=== PATIENT | female | born 1980 | race Caucasian/White ===

== ENCOUNTER 2018-11-17 06:42 | Emergency (ER) | payer MEDICAID ==
[2018-11-17 06:51] VITALS: BP 110/86
--- NOTE | 2018-11-17 07:26 | EDM.PDOC ---
ED HPI GENERAL MEDICAL PROBLEM - General Chief Complaint: General Stated Complaint: Rib Pain Time Seen by Provider: 11/17/18 07:05 Source of Information: Reports: Patient History Limitations: Reports: No Limitations - History of Present Illness INITIAL COMMENTS - FREE TEXT/NARRATIVE: 38 YO WF presents to ER with right sided rib pain after slip and fall last night around 8am. Pt reports she landed on her right side and complains of right posterior rib pain. Pt denies any difficulty breathing or anterior chest pain. Pt reports pain is worse with reaching/stretching. Pt denies any other injury. Onset Date: 11/16/18 Duration: Day(s): (1) Location: Reports: Chest Quality: Reports: Sharp Severity: Moderate Improves with: Reports: Rest Worsens with: Reports: Breathing, Movement Associated Symptoms: Reports: No Other Symptoms. 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, Other (see below) Other Treatments QUALITY ASSURANCE INSPECTOR: Ibuprofen 800mg PO; BioFreeze Right Lower Chest Pain Score (Numeric/FACES): 9 - Related Data Allergies Allergy/AdvReac Type Severity Reaction Status Date / Time No Known Drug Allergies Allergy Cannot Verified 11/17/18 06:44 Remember Home Meds: Home Meds traMADol [Ultram] 50 mg PO Q6H PRN #15 tab 11/17/18 [Rx] Past Medical History HEENT History: Reports: Sinusitis - Infectious Disease History Infectious Disease History: Reports: Chicken Pox - Past Surgical History Female Surgical History: Reports: Section Social & Family History - Tobacco Use Smoking Status *Q: Former Smoker Used Tobacco, but Quit: Yes Month/Year Tobacco Last Used: quit 17 yrs ago. Second Hand Smoke Exposure: No - Caffeine Use Caffeine Use: Reports: Coffee - Recreational Drug Use Recreational Drug Use: No ED ROS GENERAL - Review of Systems Review Of Systems: See Below Constitutional: Reports: No Symptoms HEENT: Reports: No Symptoms Respiratory: Reports: No Symptoms Cardiovascular: Reports: No Symptoms Endocrine: Reports: No Symptoms GI/Abdominal: Reports: No Symptoms : Reports: No Symptoms Musculoskeletal: Reports: No Symptoms Skin: Reports: No Symptoms Neurological: Reports: No Symptoms Psychiatric: Reports: No Symptoms Hematologic/Lymphatic: Reports: No Symptoms Immunologic: Reports: No Symptoms ED EXAM, GENERAL - Physical Exam Exam: See Below Exam Limited By: No Limitations General Appearance: Alert, WD/WN, No Apparent Distress Eye Exam: Bilateral Eye: PERRL Throat/Mouth: Normal Inspection, Normal Lips, Normal Teeth, Normal Gums, Normal Oropharynx, Normal Voice, No Airway Compromise Head: Atraumatic, Normocephalic Neck: Normal Inspection, Supple, Non-Tender, Full Range of Motion Respiratory/Chest: No Respiratory Distress, Lungs Clear, Normal Breath Sounds, No Accessory Muscle Use, Chest Non-Tender Cardiovascular: Normal Peripheral Pulses, Regular Rate, Rhythm, No Edema, No Gallop, No JVD, No Murmur, No Rub GI/Abdominal: Normal Bowel Sounds, Soft, Non-Tender, No Organomegaly, No Distention, No Abnormal Bruit, No Mass Back Exam: Normal Inspection, Full Range of Motion, NT Extremities: Normal Inspection, Normal Range of Motion, Non-Tender, Normal Capillary Refill, No Pedal Edema Neurological: Alert, Oriented, CN II-XII Intact, Normal Cognition, Normal Gait, Normal Reflexes, No Motor/Sensory Deficits Psychiatric: Normal Affect, Normal Mood Skin Exam: Warm, Dry, Intact, Normal Color, No Rash Lymphatic: No Adenopathy Course - Vital Signs Last Recorded V/S: Last Vital Signs Temp 35.3 C 11/17/18 06:45 Pulse 68 11/17/18 06:45 Resp 20 11/17/18 06:45 BP 110/86 11/17/18 06:45 Pulse Ox 100 11/17/18 06:45 - Orders/Labs/Meds Orders: Active Orders 24 hr Category Date Time Status Ribs 2V w Chest Rt [CR] Stat Exams 11/17/18 06:57 Ordered - Radiology Interpretation Free Text/Narrative:: right rib- NAD Departure - Departure Time of Disposition: 07:49 Disposition: Home, Self-Care 01 Condition: Fair Clinical Impression: Contusion of rib on right side - Discharge Information Prescriptions: traMADol [Ultram] 50 mg PO Q6H PRN #15 tab PRN Reason: Pain Instructions: Chest Contusion, Adult, [id number] Referrals: Franco Bolton MD [Primary Care Provider] - Additional Instructions: 1. discharge home 2. ultram 50mg PO Q4-6 PRN pain 3. motrin 600mg Q6 4. follow up with PCP for further evaluation and treatment 5. return to ER for worsening symptoms - My Orders Last 24 Hours: My Active Orders 11/17/18 06:57 Ribs 2V w Chest Rt [CR] Stat - Assessment/Plan Last 24 Hours: My Active Orders 11/17/18 06:57 Ribs 2V w Chest Rt [CR] Stat Assessment:: 1. right rib contusion Plan: 1. discharge home 2. ultram 50mg PO Q4-6 PRN pain 3. motrin 600mg Q6 4. follow up with PCP for further evaluation and treatment 5. return to ER for worsening symptoms
[2018-11-17] MEDS ORDERED: Ondansetron 4 MG/2 ML SDV IVPUSH ONE (07:27)
[2018-11-17] MEDS ORDERED: Morphine 4 MG/ML Syringe IVPUSH ONE (07:27)
--- NOTE | 2018-11-17 07:39 | CR ---
[id number] RAD/RAD Ribs Right W PA Chest Exam: RAD Ribs Right W PA Chest Clinical Data: TRAUMA COMPARISON: NO PREVIOUS SIMILAR EXAM IS AVAILABLE FINDINGS: The lungs are clear. There is no pneumothorax. No recent right rib fracture is seen. The cardiac silhouette is normal. IMPRESSION: NO OBVIOUS RECENT RIGHT RIB FRACTURE. Ronald Ramírez MD 11/17/18 0739 Thank you for allowing us to participate in the care of your patient.
== END 2018-11-17 08:20 | disposition home or self-care (01) ==
LOC: KA.ED 06:42
DX: S20.211A Contusion of right front wall of thorax, initial encounter (principal); Z87.891 Personal history of nicotine dependence; W01.0XXA Fall on same level from slipping, tripping and stumbling without subsequent striking against object, initial encounter
CPT/HCPCS: 71101-RT; 96374; 96375; 99283-25; J2270; J2405

== ENCOUNTER 2019-08-21 07:13 | Observation (INO) | payer MEDICAID ==
--- NOTE | 2019-08-21 07:46 | EDM.PDOC ---
ED HPI GENERAL MEDICAL PROBLEM - General Chief Complaint: Chest Pain Stated Complaint: CHEST PAIN, SHORT OF BREATH,DIZZINESS Time Seen by Provider: 08/21/19 07:25 Source of Information: Reports: Patient History Limitations: Reports: No Limitations - History of Present Illness INITIAL COMMENTS - FREE TEXT/NARRATIVE: 39 YO WF presents to ER complaining of chest tightness with associated shortness of breath which began approximately 5am. Pt reports she woke from sleep with a mild headache which she describes as a daily occurrence, and took some ibuprofen. Approximately 30 minutes later she felt tightness in her chest with associated shortness of breath. Pt reports she got scared and came to ER for evaluation. Pt denies any history of respiratory disease or recent URI symptoms. Pt denies taking hormone replacement, no smoking history or recent long travel. Pt denies fever/chills. Pt reports after getting out of her automobile in ER parking lot she felt lightheaded but denies syncope, nausea/ vomiting or diaphoresis. Onset: Today Onset Date: 08/21/19 Onset Time: 05:00 Location: Reports: Chest Quality: Reports: Other (tightness) Improves with: Reports: None Worsens with: Reports: None Associated Symptoms: Reports: Chest Pain, Headaches, Shortness of Breath. Denies: Cough, Diaphoresis, Fever/Chills, Nausea/Vomiting, Rash, Syncope Treatments BRICK BURNER HEAD: Reports: NSAIDS Chest Pain Score (Numeric/FACES): 6 - Related Data Allergies Allergy/AdvReac Type Severity Reaction Status Date / Time No Known Drug Allergies Allergy Cannot Verified 08/21/19 07:25 Remember Home Meds: Home Meds Ibuprofen 800 mg PO Q6H PRN 08/21/19 [History] Past Medical History HEENT History: Reports: Sinusitis Gastrointestinal History: Reports: Cholelithiasis - Infectious Disease History Infectious Disease History: Reports: Chicken Pox - Past Surgical History Female Surgical History: Reports: Section Social & Family History - Caffeine Use Caffeine Use: Reports: Coffee ED ROS GENERAL - Review of Systems Review Of Systems: See Below Constitutional: Reports: No Symptoms HEENT: Reports: No Symptoms Respiratory: Reports: Shortness of Breath. Denies: Hemoptysis Cardiovascular: Reports: Chest Pain, Lightheadedness Endocrine: Reports: No Symptoms GI/Abdominal: Reports: No Symptoms : Reports: No Symptoms Musculoskeletal: Reports: No Symptoms Skin: Reports: No Symptoms Neurological: Reports: No Symptoms Psychiatric: Reports: No Symptoms Hematologic/Lymphatic: Reports: No Symptoms Immunologic: Reports: No Symptoms ED EXAM, GENERAL - Physical Exam Exam: See Below Exam Limited By: No Limitations General Appearance: Alert, WD/WN, No Apparent Distress Head: Atraumatic, Normocephalic Neck: Normal Inspection, Supple, Non-Tender, Full Range of Motion Respiratory/Chest: No Respiratory Distress, Lungs Clear, Normal Breath Sounds, No Accessory Muscle Use, Chest Non-Tender Cardiovascular: Normal Peripheral Pulses, Regular Rate, Rhythm, No Edema, No Gallop, No JVD, No Murmur, No Rub, Bradycardia GI/Abdominal: Normal Bowel Sounds, Soft, Non-Tender, No Organomegaly, No Distention, No Abnormal Bruit, No Mass Back Exam: Normal Inspection, Full Range of Motion, NT Extremities: Normal Inspection, Normal Range of Motion, Non-Tender, No Pedal Edema, Normal Capillary Refill. No: Pedal Edema, Leg Pain, Increased Warmth, Pallor, Redness Neurological: Alert, Oriented, CN II-XII Intact, Normal Cognition, Normal Gait, Normal Reflexes, No Motor/Sensory Deficits Psychiatric: Normal Affect, Normal Mood Skin Exam: Warm, Dry, Intact, Normal Color, No Rash Lymphatic: No Adenopathy EKG INTERPRETATION EKG Date: 08/21/19 Time: 07:21 Rhythm: NSR Rate (Beats/Min): 44 Schurz: Normal P-Wave: Present QRS: Normal ST-T: Normal QT: Normal Comparison: NA - No Prior EKG Course - Vital Signs Last Recorded V/S: Last Vital Signs Temp 36.6 C 08/21/19 07:20 Pulse 49 L 08/21/19 08:40 Resp 8 L 08/21/19 08:40 BP 134/67 08/21/19 08:40 Pulse Ox 100 08/21/19 08:48 - Orders/Labs/Meds Orders: Active Orders 24 hr Category Date Time Status Patient Status Manage Transfer [TRANSFER] Routine ADT 08/21/19 08:54 Ordered EKG Documentation Completion [RC] ASDIRECTED Care 08/21/19 07:37 Active RT Aerosol Therapy [RC] ASDIRECTED Care 08/21/19 08:42 Active EKG 12 Lead [EK] Routine Ther 08/21/19 07:36 Ordered Labs: Laboratory Tests 08/21/19 08/21/19 08/21/19 Range/Units 07:35 07:35 07:35 WBC 7.29 (5.00-10.00) 10^3/uL RBC 4.12 (3.80-5.50) 10^6/uL Hgb 10.3 L (12.0-16.0) g/dL Hct 32.6 L (37.0-47.0) % MCV 79.1 L D (82.0-92.0) fL MCH 25.0 L (27.0-31.0) pg MCHC 31.6 L (32.0-36.0) g/dL RDW 17.6 H (11.5-14.5) % Plt Count 257 (150-400) 10^3/uL MPV 10.3 (7.4-10.4) fL Immature Gran % (Auto) 0.1 (0.0-5.0) % Neut % (Auto) 66.9 (50.0-70.0) % Lymph % (Auto) 25.4 (20.0-40.0) % Smith % (Auto) 6.3 (2.0-8.0) % Eos % (Auto) 0.8 L (1.0-3.0) % Baso % (Auto) 0.5 (0.0-1.0) % Immature Gran # (Auto) 0.01 (0.00-0.50) 10^3/uL Neut # (Auto) 4.87 (2.50-7.00) 10^3/uL Lymph # (Auto) 1.85 (1.00-4.00) 10^3/uL Smith # (Auto) 0.46 (0.10-0.80) 10^3/uL Eos # (Auto) 0.06 L (0.10-0.30) 10^3/uL Baso # (Auto) 0.04 (0.00-0.10) 10^3/uL D-Dimer, Quantitative < 100 (<400) ng/mL Sodium 144 (136-145) mmol/L Potassium 3.9 (3.3-5.3) mmol/L Chloride 107 (98-115) mmol/L Carbon Dioxide 25.7 (21.0-32.0) mmol/L Anion Gap 15.2 H (5-15) mmol/L BUN 20 (6-25) mg/dL Creatinine 0.62 (0.51-1.17) mg/dL Est Cr Clr Drug Dosing 130.43 mL/min Estimated GFR (MDRD) > 60 mL/min Glucose 131 H (75 - 99) mg/dL Calcium 8.4 L (8.7-10.3) mg/dL Total Bilirubin 0.3 (0.2-1.0) mg/dL AST 34 (15-37) U/L ALT 47 (12-78) U/L Alkaline Phosphatase 90 (46-116) IU/L Creatine Kinase 224 (26-276) U/L CK-MB (CK-2) 3.20 (0.00-4.30) ng/mL Troponin I 0.04 (0.00-0.070) ng/mL Total Protein 6.6 (6.4-8.2) g/dL Albumin 3.20 (3.00-4.80) g/dL HCG, Qual Negative (NEGATIVE) Meds: Medications Discontinued Medications Generic Name Dose Route Start Last Admin Trade Name Freq PRN Reason Stop Dose Admin Albuterol 2.5 mg 08/21/19 08:41 08/21/19 08:48 Proventil Neb Soln NEB 08/21/19 08:42 2.5 mg ONETIME ONE Administration Departure - Departure Time of Disposition: 08:51 Disposition: Refer to Observation Condition: Good Clinical Impression: Bradycardia Chest pain Qualifiers: Chest pain type: unspecified Qualified Code(s): R07.9 - Chest pain, unspecified Referrals: Franco Bolton MD [Primary Care Provider] - Forms: ED Department Discharge Sepsis Event Note - Focused Exam Vital Signs: Vital Signs Temp Pulse Resp BP Pulse Ox Pulse Ox 08/21/19 08:48 100 08/21/19 08:40 49 L 8 L 134/67 100 08/21/19 07:45 54 L 11 L 134/67 100 08/21/19 07:30 63 22 H 138/67 100 08/21/19 07:20 36.6 C 60 20 140/73 98 Date Exam was Performed: 08/21/19 Time Exam was Performed: 09:01 - My Orders Last 24 Hours: My Active Orders 08/21/19 07:36 EKG 12 Lead [EK] Routine 08/21/19 07:37 EKG Documentation Completion [RC] ASDIRECTED 08/21/19 08:42 RT Aerosol Therapy [RC] ASDIRECTED 08/21/19 08:54 Patient Status Manage Transfer [TRANSFER] Routine - Assessment/Plan Last 24 Hours: My Active Orders 08/21/19 07:36 EKG 12 Lead [EK] Routine 08/21/19 07:37 EKG Documentation Completion [RC] ASDIRECTED 08/21/19 08:42 RT Aerosol Therapy [RC] ASDIRECTED 08/21/19 08:54 Patient Status Manage Transfer [TRANSFER] Routine Assessment:: 1. Chest pain 2. bradycardia Plan: 1. Admit to medicine- Calin WEINBERG
[2019-08-21 08:12] LABS: ANION GAP 15.2 mmol/L (5-15); CHLORIDE,CL 107 mmol/L (98-115); SODIUM,NA 144 mmol/L (136-145)
--- NOTE | 2019-08-21 08:38 | CR ---
[id number] RAD/RAD Chest PA And Lateral EXAM: RAD Chest PA And Lateral INDICATION: PAIN. COMPARISON: November 17, 2018. DISCUSSION: Cardiomediastinal silhouette is normal in size and contour. No infiltrate, effusion, pneumothorax, or edema. IMPRESSION: Negative examination of the chest. Sanjeev Bullard MD 08/21/19 0837 Thank you for allowing us to participate in the care of your patient.
[2019-08-21] MEDS ORDERED: Albuterol 0.083% 2.5 MG/3 ML Neb Soln NEB ONE (08:41)
[2019-08-21] MEDS ORDERED: Acetaminophen 500 MG Tab PO ONE (09:03)
[2019-08-21] MEDS ORDERED: GI Cocktail 45 ML BOTTLE PO ONE (09:15)
[2019-08-21] MEDS ORDERED: Ibuprofen 200 MG Tab PO PRN (09:16)
[2019-08-21] MEDS ORDERED: ALPRAZolam 0.25 MG Tab PO ONE (09:46)
[2019-08-21] MEDS ORDERED: Pantoprazole 40 MG Vial IVPUSH ONE (10:53)
[2019-08-21] MEDS ORDERED: Enoxaparin 40 MG/0.4 ML Syringe SUBCUT SCH (11:15)
--- NOTE | 2019-08-21 11:31 | PCM.HP.2 ---
H&P History of Present Illness - General Date of Service: 08/21/19 Admit Problem/Dx: Admission Diagnosis/Problem Admission Diagnosis/Problem Chest pain Source of Information: Patient, Family, Provider, RN History Limitations: Reports: No Limitations Chest Pain Score (Numeric/FACES): 6 - Related Data Allergies/Adverse Reactions: Allergies Allergy/AdvReac Type Severity Reaction Status Date / Time No Known Drug Allergies Allergy Cannot Verified 08/21/19 09:12 Remember Home Medications: Home Meds Omeprazole 20 mg PO ACBREAKFAST #30 cap.sr 08/21/19 [Rx] Past Medical History HEENT History: Reports: Sinusitis Gastrointestinal History: Reports: Cholelithiasis Genitourinary History: Reports: None 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: Neurological History: Reports: Headaches, Chronic Endocrine/Metabolic History: Reports: Obesity/BMI 30+ - Infectious Disease History Infectious Disease History: Reports: Chicken Pox - Past Surgical History HEENT Surgical History: Reports: None Female Surgical History: Reports: Section Social & Family History - Family History Family Medical History: Noncontributory - Tobacco Use Smoking Status *Q: Never Smoker - Caffeine Use Caffeine Use: Reports: Coffee - Recreational Drug Use Recreational Drug Use: No H&P Review of Systems - Review of Systems: Review Of Systems: See Below General: Denies: Weight Loss HEENT: Reports: Headaches Pulmonary: Reports: No Symptoms Cardiovascular: Reports: Chest Pain, Blood Pressure Problem Gastrointestinal: Denies: Abdominal Pain, Constipation, Diarrhea, Decreased Appetite, Difficulty Swallowing, Distension, Nausea, Vomiting Genitourinary: Reports: No Symptoms Musculoskeletal: Reports: Other Skin: Reports: No Symptoms (Bilateral knee pain) Psychiatric: Reports: Anxiety, Agitation Neurological: Reports: Headache Exam - Exam Exam: See Below - Vital Signs Vital Signs: Last Vital Signs Temp 96.5 F 08/21/19 09:11 Pulse 63 08/21/19 09:11 Resp 14 08/21/19 09:11 BP 148/90 H 08/21/19 09:11 Pulse Ox 100 08/21/19 09:11 Weight: 296 lb - Exam Quality Assessment: DVT Prophylaxis General: Alert, Oriented, Cooperative. No: Mild Distress HEENT: Mucosa Moist & [place] Neck: Supple Lungs: Clear to Auscultation, Normal Respiratory Effort Cardiovascular: Regular Rate, Regular Rhythm GI/Abdominal Exam: Normal Bowel Sounds, Other (Large body habitus). No: No Distention, Distended, Guarding, Rigid, Mass (Female) Exam: Deferred Back Exam: No: CVA Tenderness (L) Extremities: Pedal Edema Peripheral Pulses: 2+: Radial (R), Femoral (L) Skin: Warm, Dry, Intact Neurological: Cranial Nerves Intact, Reflexes Equal Bilateral Neuro Extensive - Mental Status: Alert, Oriented x3, Normal Mood/Affect, Normal Cognition Neuro Extensive - Motor, Sensory, Reflexes: CN II-XII Intact, Normal Gait, Normal Reflexes Psychiatric: Alert, Normal Affect, Anxious. No: Agitated - Patient Data Lab Results Last 24 hrs: Laboratory Results - last 24 hr 08/21/19 08/21/19 08/21/19 Range/Units 07:35 07:35 07:35 WBC 7.29 (5.00-10.00) 10^3/uL RBC 4.12 (3.80-5.50) 10^6/uL Hgb 10.3 L (12.0-16.0) g/dL Hct 32.6 L (37.0-47.0) % MCV 79.1 L D (82.0-92.0) fL MCH 25.0 L (27.0-31.0) pg MCHC 31.6 L (32.0-36.0) g/dL RDW 17.6 H (11.5-14.5) % Plt Count 257 (150-400) 10^3/uL MPV 10.3 (7.4-10.4) fL Immature Gran % (Auto) 0.1 (0.0-5.0) % Neut % (Auto) 66.9 (50.0-70.0) % Lymph % (Auto) 25.4 (20.0-40.0) % [place] % (Auto) 6.3 (2.0-8.0) % Eos % (Auto) 0.8 L (1.0-3.0) % Baso % (Auto) 0.5 (0.0-1.0) % Immature Gran # (Auto) 0.01 (0.00-0.50) 10^3/uL Neut # (Auto) 4.87 (2.50-7.00) 10^3/uL Lymph # (Auto) 1.85 (1.00-4.00) 10^3/uL [place] # (Auto) 0.46 (0.10-0.80) 10^3/uL Eos # (Auto) 0.06 L (0.10-0.30) 10^3/uL Baso # (Auto) 0.04 (0.00-0.10) 10^3/uL D-Dimer, Quantitative < 100 (<400) ng/mL Sodium 144 (136-145) mmol/L Potassium 3.9 (3.3-5.3) mmol/L Chloride 107 (98-115) mmol/L Carbon Dioxide 25.7 (21.0-32.0) mmol/L Anion Gap 15.2 H (5-15) mmol/L BUN 20 (6-25) mg/dL Creatinine 0.62 (0.51-1.17) mg/dL Est Cr Clr Drug Dosing 130.43 mL/min Estimated GFR (MDRD) > 60 mL/min Glucose 131 H (75 - 99) mg/dL Calcium 8.4 L (8.7-10.3) mg/dL Total Bilirubin 0.3 (0.2-1.0) mg/dL AST 34 (15-37) U/L ALT 47 (12-78) U/L Alkaline Phosphatase 90 (46-116) IU/L Creatine Kinase 224 (26-276) U/L CK-MB (CK-2) 3.20 (0.00-4.30) ng/mL Troponin I 0.04 (0.00-0.070) ng/mL Total Protein 6.6 (6.4-8.2) g/dL Albumin 3.20 (3.00-4.80) g/dL HCG, Qual Negative (NEGATIVE) Result Diagrams: 08/21/19 07:35 08/21/19 07:35 Sepsis Event Note - Evaluation Sepsis Screening Result: No Definite Risk - Focused Exam Vital Signs: Vital Signs Temp Temp Pulse Resp BP BP Pulse Ox 08/21/19 09:11 96.5 F 63 14 148/90 H 100 08/21/19 08:48 08/21/19 08:40 49 L 8 L 134/67 100 08/21/19 07:45 54 L 11 L 134/67 100 08/21/19 07:30 63 22 H 138/67 100 08/21/19 07:20 98 F 60 20 140/73 98 Pulse Ox 08/21/19 09:11 08/21/19 08:48 100 08/21/19 08:40 08/21/19 07:45 08/21/19 07:30 08/21/19 07:20 Date Exam was Performed: 08/22/19 Time Exam was Performed: 10:53 Problem List Initiated/Reviewed/Updated: Yes Orders Last 24hrs: Active Orders 24 hr Category Date Time Status Patient Status [ADT] Routine ADT 08/21/19 11:10 Ordered Activity as Tolerated [RC] .Routine Care 08/21/19 11:11 Ordered Antiembolic Devices [RC] PER UNIT ROUTINE Care 08/21/19 11:11 Active Vital Signs [RC] Q8H Care 08/21/19 11:13 Active Head wo Cont [CT] Routine Exams 08/21/19 10:54 Stop Req Enoxaparin [Lovenox] Med 08/21/19 11:15 Ordered 40 mg SUBCUT Q12H Ibuprofen [Motrin] Med 08/21/19 09:16 Active 800 mg PO Q6H PRN Antiembolic Hose [OM.PC] Routine Oth 08/21/19 11:11 Ordered Code Status [Resuscitation Status] Routine Resus Stat 08/21/19 11:11 Ordered EKG 12 Lead [EK] Routine Ther 08/21/19 07:36 Stop Req Medication Orders Enoxaparin Sodium (Lovenox) 40 mg SUBCUT Q12H CHRIS Ibuprofen (Motrin) 800 mg PO Q6H PRN PRN Reason: Headache/Pain Assessment/Plan Comment:: History of present illness combined discharge summary This 39-year-old significantly obese female was admitted into observation through the ED came in complaining of tightness in her chest tightness with associated shortness of breath which began approximately 5am. Pt reports she woke from sleep with a mild frontal headache which she describes as a daily occurrence, took her original 800 mg with food. Approximately 30 minutes later she felt tightness in her chest with associated shortness of breath. Pt reports she got scared and came to ER for evaluation. Pt denies any history of respiratory disease or recent URI symptoms. Pt denies taking hormone replacement , no smoking history or recent long travel. Pt denies fever/chills. Pt reports after getting out of her automobile in ER parking lot she felt lightheaded but denies syncope, nausea/vomiting or diaphoresis. Patient states she also has been taking quite a bit of ibuprofen due to chronic knee pain Pertinent ED evaluation/physical findings EKG, sinus bradycardia 40s Chest x-ray, normal Primary hospital problems Chest pain, suspect noncardiac etiology, MHS score low, CAD pre-probability low , ruled out ND Migraineous Headaches, Acid reflux, gastritis, NSAID overuse/induced Anemia, microcytic, anisocytosis, will have full workup as outpatient Diabetes type 2, discovered on this admission Chronic problems obesity, morbid, Anxiety, situational Bilateral knee pain, chronic, obesity comorbid Superficial varicosities, engorged, likely significant venous insufficiency BLE Plan today Telemetry Lovenox, GI cocktail x1 compression stockings Protonix Hold all NSAIDs Repeat troponin We will discharge this evening if doing well Discharge planning She can be discharged this evening at 5 PM if clinically stable, outpatient referral with myself Friday as she will need neurology consultation, venous insufficiency studies, nutritional counseling, anemia work-up. We will give her PPI out of ER stock until follow-up Hospital course/update, Patient did fairly well throughout the day however did have ongoing frontal headaches unresponsive to Imitrex however Toradol and IV fluids appear to help. Patient strongly desired to go home and was in clinically stable condition and was released to home with close follow-up. A1c was assessed slightly elevated at 6.8%, was given PPI therapy through [facility] along with nursing ED stock. Follow her [facility] in the [facility]. Myocardial infarction was ruled out as it was low suspicion and low probability of CAD or limited flow disease. She was to report any worsening symptoms headache or chest pain Final diagnosis Rule out ND, this was ruled out, Migraineous Headaches, Acid reflux, gastritis, NSAID overuse/induced Anemia, microcytic, anisocytosis, will have full workup as outpatient Diabetes type 2, newly discovered on this admission, patient unaware will discuss at follow-up - Mortality Measure Prognosis:: Good
[2019-08-21 14:21] LABS: HEMOGLOBIN A1C 6.8 % (4.3-5.7)
[2019-08-21 14:47] VITALS: BP 136/67; PULSE 56
[2019-08-21] MEDS ORDERED: SUMAtriptan 25 MG Tab PO ONE (15:49)
[2019-08-21] MEDS ORDERED: Ondansetron 4 MG/2 ML SDV IVPUSH ONE (15:50)
[2019-08-21] MEDS ORDERED: Sodium Chloride 0.9% 1,000 ML IV ONE (15:50)
[2019-08-21] MEDS ORDERED: Ketorolac 60 MG/2 ML SDV IM ONE (17:12)
[2019-08-21] MEDS ORDERED: Omeprazole 20 MG Cap.CR PO SCH (18:32)
== END 2019-08-21 18:40 | disposition home or self-care (01) ==
LOC: KA.ED 07:13 → KA.MS 08:54
PROVIDERS: ADMIT Physician Assistant Medical; ATTEND Nurse Practitioner Family
DX: R07.89 Other chest pain (principal); G43.909 Migraine, unspecified, not intractable, without status migrainosus; K21.9 Gastro-esophageal reflux disease without esophagitis; D64.9 Anemia, unspecified; E11.9 Type 2 diabetes mellitus without complications; F41.9 Anxiety disorder, unspecified; G89.29 Other chronic pain; M25.562 Pain in left knee; M25.561 Pain in right knee; I83.93 Asymptomatic varicose veins of bilateral lower extremities; E66.01 Morbid (severe) obesity due to excess calories; Z68.41 Body mass index [BMI] 40.0-44.9, adult; Z79.899 Other long term (current) drug therapy
CPT/HCPCS: 71046; 80053; 82550; 82553; 83036; 84484; 84703; 85025; 85379; 93005; 94640; 96361; 96372; 96374; 96375; 99285-25; A9270-GY; C9113; G0378; J1650; J1885; J2405; J7030; J7613-GY